=== PATIENT | male | born 1955 | race Caucasian/White ===

== ENCOUNTER 2025-03-17 19:53 | Emergency (ER) | payer MEDICARE, SELFPAY ==
[2025-03-17 19:57] VITALS: BP 152/91
--- NOTE | 2025-03-17 20:35 | ED.GENMED ---
History of Present Illness
General
Chief Complaint: Swelling
Source: patient
Exam Limitations: none
Time Seen by Provider: 03/17/25 20:33
Nursing documentation reviewed up to this point in time: agreed with
History of Present Illness
History of Present Illness:
Note:
CHIEF COMPLAINT(S)
Lower extremity swelling.
HISTORY OF PRESENT ILLNESS
The patient is a 70- year-old male with a history of multiple sclerosis and recently diagnosed borderline type 2 diabetes, presenting with swelling of the left foot and knee for the past few days. The swelling is described as significant, affecting
ambulation. The patient denies pain but states that he is unable to wear his shoes due to the swelling. He also reports a recurrent issue with the left knee, previously injured during a skating accident, where the knee twists unexpectedly, leading
to falls, with the last fall occurring within the past month. The knee has been drained multiple times historically, the last procedure was over 30 years ago. The patient denies fever, chest pain, or shortness of breath. He has been more sedentary
recently due to manic bipolar disorder but reports no significant change in activity over the past month.
ADDITIONAL HISTORY OBTAINED FROM SOURCES OTHER THAN THE PATIENT
According to family, the patient has been more sedentary and was bedridden for some time due to manic episodes about a month ago
CHRONIC MEDICAL CONDITIONS SIGNIFICANTLY AFFECTING CARE
Chronic conditions affecting care: Multiple sclerosis, manic bipolar disorder, borderline type 2 diabetes.
PHYSICAL EXAM
- Nursing notes reviewed and vital signs reviewed.
General: Patient is well appearing and in no acute distress; non-toxic
Skin: Warm and dry, no rashes or lesions
Head: Normocephalic, atraumatic
Eyes: Sclera non-icteric. EOMs intact.
Cardiac: Regular rate and rhythm, no murmur
Peripheral Vascular: Bilateral pedal edema extending to a small portion of the distal calf
Pulm: Normal respiratory effort, no wheezes, rales, rhonchi
Abdomen: No abdominal tenderness to palpation
Musculoskeletal: Bilateral lower extremity edema no tenderness palpation bilateral lower extremities, full range of motion
Neuro: CN II-XII intact, no focal neurologic deficits.
Psychiatric: Appropriate mood and affect.
PLAN
- Conduct blood work to evaluate for potential cardiac or renal causes of edema.
- Schedule an ultrasound to rule out deep vein thrombosis
- Advise on the use of compression wraps for symptomatic relief of edema.
- Educate on leg elevation to manage swelling.
DIFFERENTIAL DIAGNOSIS
The Differential Diagnosis includes, in no particular order and is not limited to:
1. Dependent edema
2. Deep vein thrombosis
3. Congestive heart failure
4. Kidney dysfunction
5. Lymphedema
6. Venous insufficiency
7. Cellulitis
8. Neuropathy-related swelling
9. Medication side effects
10. Recurrent joint effusion due to prior trauma
REVIEW OF PREVIOUS RECORDS
Reviewed [facility], no previous ER physician condition or discharge summary to review
EKG
EKG shows normal sinus rhythm with no ischemic changes
MDM/DISPOSITION
70-year-old male presents emergency department today with concerns of bilateral lower extremity edema. It started the past week and has been getting worse. He reports that he has trouble getting shoes on because of the swelling. He denies any
pain denies any fevers or chills he denies any chest pain or shortness of breath. Of note, he has been more sedentary recently as he was just discharged from a psychiatric hospital and he spent a lot of time in bed. On exam he is well-appearing in
no acute distress. Heart was regular rate and rhythm with no murmurs. His lungs are clear to auscultation bilaterally. While there is edema in the lower extremities, there is no erythema, no tenderness to palpation, doubt cellulitis. Patient
went for chest x-ray which was not show any evidence of pleural effusion or cardiomegaly. His proBNP was not concerning for acute heart failure. His CBC and CMP are unremarkable. His albumin is normal. His kidney functions normal. Suspect
dependent edema. Discussed elevating extremities and using compression stockings. Patient stable for discharge
Review of Systems
Review of Systems
All Other Systems: ROS reviewed and negative except as documented in HPI and ROS
Phy Exam
Physical Exam
Physical Exam:
see hpi
Scores
Heart Failure Risk
Heart Failure Risk Score: Not Applicable
Course
Orders/Labs/Results
Orders:
Orders
03/17/25 20:45
CR Chest - 2 Views Urgent
Comment:
Reason For Exam: lower ext swelling, intermittent sob
US Legs, Bilateral [US Periph Venous LOWER Ext Bayron] Urgent
Comment:
Reason For Exam: b/l le edema
03/17/25 20:46
Electrocardiogram (*1) Urgent
Reason for Study: Fatigue / Weakness
EKG- Treatment ONCE
03/17/25 21:13
Complete Blood Count/With Diff Urgent
Comprehensive Metabolic Panel Urgent
NT-proBNP Urgent
Abnormal Lab Results
03/17/25
21:13
RBC 4.64 L 10^6/uL
(4.70-6.10)
Monocytes % 10.4 H %
(1.7-9.3)
Glucose 170 H mg/dl
(70-99)
03/17/25 21:13
03/17/25 21:13
Vital Signs
Initial and Last Documented VS:
Initial Vital Signs
Temp Pulse Resp BP Pulse Ox
98.8 F 82 20 152/91 97
03/17/25 19:57 03/17/25 19:57 03/17/25 19:57 03/17/25 19:57 03/17/25 19:57
Last Documented Vital Signs
Temp Pulse Resp BP Pulse Ox
97.5 F 67 17 140/90 96
03/17/25 22:20 03/17/25 22:20 03/17/25 22:20 03/17/25 22:20 03/17/25 22:20
*Pulse Oximetry
SaO2: 97
Oxygen Mode of Delivery: Room air
*Critical Care Note
Total Time (30-74mins, 75-104mins- exclusive of procedures): Not Applicable
ED Attending Note
-
Portions of this chart may have been created with voice recognition software.� Occasional wrong word or��sound alike� substitutions may have occurred due to the inherent limitations of voice recognition software.
Discharge Plan
Departure
Patient Disposition: Home (Routine Discharge)
Date of Disposition: 03/17/25
Time of Disposition: 22:56
Patient with high blood pressure during this ER visit?: Yes
Condition: Good
Discharge Problem:
Dependent edema
Instructions: Dependent Edema (DC), BLOOD PRESSURE
Prescriptions:
No Action
divalproex 500 mg Tablet,Delayed Release (Dr/Ec)
500 mg PO TID
trazodone 100 mg Tablet
100 mg PO HS
hydroxyzine pamoate 25 mg Capsule
25 mg PO BID PRN (Reason: anxiety)
Referrals:
NONE,* [Family Provider, Internal Medicine]
Luis Alexander MD [Active, Family Practice] - Call in 1-3 days for appt
Activity Restrictions/Additional Instructions:
Please keep your legs elevated at home. Please diamond picker compression stockings from your local pharmacy. Please call attached number establish care with primary care provider. Your information has been sent to the PCP request hotline.
PLEASE RETURN EMERGENCY DEPARTMENT SHOULD YOU DEVELOP CHEST PAIN, SHORTNESS OF BREATH, REDNESS ALONG YOUR LOWER EXTREMITIES, INFLAMED LYMPH NODES, FEVERS OR CHILLS, OR ANY OTHER SIGNS OR SYMPTOMS WORRISOME TO YOU.
Interventions
Interventions:
*Risk Screen - Suicide Last Done: 03/17/25 19:57
*General Assessment Last Done: 03/17/25 19:57
*Neglect/Abuse Screening Last Done: 03/17/25 19:57
*ED- Fall Risk Assessment Last Done: 03/17/25 21:07
*ED COVID-19 Vaccine History Last Done: 03/17/25 21:07
*Nursing Disposition Last Done: 03/17/25 23:08
ED- Cardiac Assessment Last Done: 03/17/25 21:20
ED- Pulmonary Assessment Last Done: 03/17/25 21:20
ED-Skin Assessment Last Done: 03/17/25 21:20
Discharge Date and Time
Discharge Date/Time: 03/17/25 23:09
Print Language: MALTESE
[2025-03-17 21:06] VITALS: BMI 31.3
[2025-03-17 21:19] VITALS: BP 140/87
[2025-03-17 21:20] LABS: % Basophils 1.1 % (0-2); % Eosinophils 4.6 % (0-6); % Immature Granulocytes 0.5 % (0-0.5); % Monocytes 10.4 % (1.7-9.3); % Neutrophils 55.4 % (42.2-75.2); Absolute Basophils 0.1 10^3/uL (0-0.2); Absolute Eosinophils 0.3 10^3/uL (0-0.7); Absolute Lymphocytes 1.6 10^3/uL (1.2-3.4); Absolute Monocytes 0.6 10^3/uL (0.1-0.6); Absolute Neutrophils 3.1 10^3/uL (1.4-6.5); Hemoglobin 13.8 g/dL (13.0-18.0); Mean Corp Hgb Conc. 34.5 g/dL (33.0-37.0); Mean Corpuscular Hgb 29.7 pg (27.0-31.0); Mean Corpuscular Volume 86.2 fL (80.0-94.0); Mean Platelet Volume 9.4 fL (7.4-10.4); Nucleated Red Blood Cells % 0 % (-); Platelet Count 217 10^3/uL (130-400); Red Blood Cell Count 4.64 10^6/uL (4.70-6.10); Red Cell Dist. Width 13.7 % (11.5-14.5); White Blood Cell Count 5.7 10^3/uL (4.8-10.8)
[2025-03-17 21:42] LABS: NT-proBNP 70.9 pg/ml
[2025-03-17 21:44] LABS: ALT (SGPT) 20 U/L (0-50); AST (SGOT) 20 U/L (17-59); Albumin 3.8 g/dl (3.5-5.0); Alkaline Phosphatase 46 U/L (38-126); Blood Urea Nitrogen 14 mg/dl (9-20); Calcium 8.9 mg/dl (8.4-10.2); Carbon Dioxide 28 mmol/L (22-30); Chloride 106 mmol/L (98-107); Estimated Creatinine Clearance 115 ml/min; Glucose 170 mg/dl (70-99); Potassium 3.9 mmol/L (3.5-5.1); Sodium 139 mmol/L (135-145); Total Bilirubin 0.7 mg/dl (0.2-1.3); Total Protein 6.5 g/dl (6.3-8.2); eGFR > 60.00
[2025-03-17 22:20] VITALS: BP 140/90
== END 2025-03-17 23:09 | disposition home or self-care (01) ==
LOC: EMR 19:53
PROVIDERS: Physician Assistant; EMERGENCY PHYSICIAN Student in an Organized Health Care Education/Training Program
DX: R60.9 Edema, unspecified (principal); R03.0 Elevated blood-pressure reading, without diagnosis of hypertension; E11.9 Type 2 diabetes mellitus without complications; G35 Multiple sclerosis; F31.9 Bipolar disorder, unspecified
CPT/HCPCS: 99285; 71046; 80053; 83880; 85025; 93005; 93970